=== PATIENT | female | born 1955 | race Caucasian/White ===

== ENCOUNTER 2021-11-28 06:23 | Emergency (ER) | payer MEDICARE, OTHER ==
[~2021-11-28 06:23] MED LIST: CALCIUM CHLORIDE 100 MG/ML 10 ML SYRINGE ONE; EPINEPHrine 10 ML SYRINGE (0.1 MG/ML) ONE; SODIUM BICARB 8.4% 50 ML SYR (1 MEQ/ML) ONE
[2021-11-28] MEDS ORDERED: INSULIN REGULAR 100 UNIT/ML VIAL (IV) IV ONE (06:35)
[2021-11-28] MEDS ORDERED: DEXTROSE 50% SYRINGE 50 ML IVP STA (06:35)
--- NOTE | 2021-11-28 07:11 | ED ---
CPR HPI - General Stated Complaint: Cardiac Arrest Time Seen by Provider: 11/28/21 06:39 Source: RN notes reviewed, old records reviewed Mode of arrival: EMS Limitations: altered mental status, physical limitation - History of Present Illness Initial Comments: This is a 65-year-old female to the ER for evaluation. This patient presents today here for EMS. Patient presents under cardiac arrest. Patient was on her way to dialysis this morning when she was found passed out car. EMSs arrival patient was found to be unresponsive with no pulse, CPR was began ACLS protocol was began Complaint: found unresponsive, stopped breathing, collapsed during activity -: minute(s) (45) Place: home Bystander CPR Performed: No AED Applied by Bystander/Well Control Instructor: Yes Shock Advised: No Initial Findings in the Field: unresponsive, no respirations, no pulse, palpable pulse, no BP, PEA ROSC in the Field: Yes Associated Injuries: No - Related Data Allergies Allergy/AdvReac Type Severity Reaction Status Date / Time Unable to Assess Allergy Verified 11/28/21 06:46 Review of Systems ROS Statement: Those systems with pertinent positive or pertinent negative responses have been documented in the HPI. ROS Other: All systems not noted in ROS Statement are negative. General Exam General appearance: alert, in no apparent distress, anxious Head exam: Present: atraumatic, normocephalic, normal inspection Eye exam: Present: other (pupils fixed and dilated). Absent: scleral icterus, conjunctival injection, periorbital swelling ENT exam: Present: normal exam, mucous membranes dry Neck exam: Present: normal inspection. Absent: tenderness, meningismus, lymphadenopathy Respiratory exam: Present: normal lung sounds bilaterally, decreased breath sounds. Absent: respiratory distress, wheezes, rales, rhonchi, stridor Cardiovascular Exam: Present: other (asystole, PEA). Absent: systolic murmur, diastolic murmur, rubs, gallop, clicks GI/Abdominal exam: Present: soft, normal bowel sounds. Absent: distended, tenderness, guarding, rebound, rigid Extremities exam: Present: normal inspection, full ROM, normal capillary refill. Absent: tenderness, pedal edema, joint swelling, calf tenderness Back exam: Present: normal inspection Skin exam: Present: cyanosis, pallor, mottled. Absent: rash Course - Reevaluation(s) Reevaluation #1: 11/28/21 07:18 Medical record is reviewed Reevaluation #2: 11/28/21 07:18 Patient including prehospital greater than 40 minutes of high quality ACLS with no response Reevaluation #3: 11/28/21 07:19 Ultrasound done here in the ER shows cardiac standstill Reevaluation #4: 11/28/21 07:19 Patient is pronounced at 0638 secondary to pupils fixed and dilated asystole with no heart sounds, no spontaneous breaths and no pulse - Consultations Consultation #1: Spoke with director of medical review body is clear Medical Decision Making - Medical Decision Making 65 female to the emergency department for evaluation status post cardiopulmonary arrest. Patient's pronounced at 0638 Critical Care Time Critical Care Time: Yes Total Critical Care Time: 31 Disposition Clinical Impression: Cardiopulmonary arrest Disposition: HOME SELF-CARE Condition: Critical Is patient prescribed a controlled substance at d/c from ED?: No Referrals: None,Stated [Primary Care Provider] - 1-2 days Preliminary Cause of : CPA
== END 2021-11-28 15:41 | disposition home or self-care (01) ==
LOC: EC 06:23
DX: I46.9 Cardiac arrest, cause unspecified (principal)
CPT/HCPCS: 99285